=== PATIENT | male | born 1955 | race Caucasian/White ===

== ENCOUNTER 2023-09-22 13:31 | Outpatient (CLI) | payer OTHER, SELFPAY ==
--- NOTE | 2023-09-22 13:45 | MR_ITS ---
[address] [address] Phone:?[phone] Fax:?[phone] Referring Physician Information: Arnulfo Diaz M.D. [id number] [facility] [address] Phone:?[phone] Fax:?[phone] Patient:Karen Cole D.O.B:?1955 Sex:?Male Phone:?[phone] [facility] MRN:?[id number] Exam Date:?09/22/2023 EXAM: MRI of the RIGHT KNEE, without contrast CLINICAL: Evaluate for medial meniscal tear. COMPARISONS: X-rays dated 02/10/2023. TECHNICAL: Multiplanar multisequence MRI of the right knee was obtained. SEDATION: None. CONTRAST: None. FINDINGS: Ligaments: ACL: Intact and unremarkable. PCL: Intact and unremarkable. MCL: Intact and unremarkable. LCL: Intact and unremarkable. Posterolateral corner: Popliteus, biceps femoris, iliotibial band, and the popliteofibular ligament appear intact. Posteromedial corner: Semimembranosus, pes anserine tendons and posterior oblique ligament appear intact. Extensor mechanism: Patellar tendon: Intact, without tendinopathy. Quadriceps tendon: Intact, without tendinopathy. Retinacula: Medial and lateral retinacula are intact. Fat pads: There is increased edema involving Hoffa's fat. Patellofemoral joint: Patella: Deep chondral fissuring and small segment of developing deep chondral delamination involves the medial patellar facet on axial series 4 images 10-11 with underlying subchondral reactive marrow edema. Small segment of high-grade chondral loss involves the medial patellar facet on axial series 4 image 13. Deep chondral fissuring/delamination also involves the superior patellar median ridge with mild underlying subchondral marrow edema as seen on axial series 4 image 7. There is chondral heterogeneity and mild surface irregularity involving the lateral facet. Trochlea: Full thickness chondral loss of the inferior trochlea on sagittal series 6 images 13-17. There is heterogeneity of the trochlear cartilage. Medial compartment: Medial meniscus: There is complex tearing throughout the posterior horn extending into the posterior root and throughout the body segment. Medial cartilage: There is high-grade/full-thickness chondral loss involving the peripheral weightbearing medial femoral condyle with grade 2-3 chondral loss involving the peripheral medial tibial plateau. Focal deep chondral fissure involving the medial tibial plateau on sagittal series 6 image 22 with mild underlying subchondral reactive marrow edema. Grade 2-3 chondral loss involves the posterior nonweightbearing medial femoral condyle. Lateral compartment: Lateral meniscus: No evidence of discrete meniscal tear or meniscal displacement. Lateral cartilage: No significant chondromalacia. Knee joint: Effusion: Moderate partially visualized right knee effusion. Intra-articular bodies:?No convincing bodies identified. Popliteal cyst: None. Bones: No suspicious bone marrow signal alteration or fracture line. Reactive marrow edema and small degenerative cystic change involves the posterior medial tibial plateau. There is scattered degenerative peripheral marginal spurring seen to involve all 3 compartments of the knee. Anterior dominant knee subcutaneous soft tissue is noted, nonspecific. IMPRESSION: 1. Tearing of the medial meniscus as above. 2. Chondral loss involving the patellofemoral and medial compartments as above. 3. Moderate partially visualized joint effusion. 4. No evidence of ligamentous injury or fracture. [facility] Electronically signed on 09/23/2023 9:03:00 AM by Randy Whitt D.O.
== END 2023-09-22 13:32 | disposition home or self-care (01) ==
LOC: MRI 13:32
PROVIDERS: PCP Physician Assistant; Visit Provider Orthopaedic Surgery
DX: M25.561 Pain in right knee (principal); S83.241A Other tear of medial meniscus, current injury, right knee, initial encounter; M25.461 Effusion, right knee
CPT/HCPCS: 73721

== ENCOUNTER 2023-11-06 07:25 | Day surgery (SDC) | payer OTHER, SELFPAY ==
[2023-11-06] VITALS (24 sets, daily range): BP systolic 95–173; BP diastolic 57–94; PULSE 60–98; RESP 16–20; TEMP 35.7–37.4; O2SAT 90–98; BMI 41.3
[2023-11-06] MEDS: LACTATED RINGERS 1000 ML 1,000 ML 100 ML IV ×2 (06:55→10:35)
[2023-11-06] MEDS: OXYCODONE (CR) 10 MG TAB.ER.12H PO (07:56)
[2023-11-06] MEDS: ACETAMINOPHEN 500 MG TABLET 1000 MG PO ×3 (07:56→20:46)
[2023-11-06] MEDS: CELECOXIB 200 MG CAPSULE PO (07:56)
[2023-11-06] MEDS: SODIUM CHLORIDE 0.9 % (FLUSH) 10 ML SYRINGE IVF (08:31)
[2023-11-06] MEDS: fentaNYL 100 MCG/2 ML inj IVP (09:03)
[2023-11-06] MEDS: MIDAZOLAM HCL 1 MG/ML inj IVP (09:03)
--- NOTE | 2023-11-06 09:17 | SUR.PREOP ---
TIME?OUT:?0903 PT/RN/MDA?VERIFICATION?OF?SURGICAL?SITE,?PROCEDURE,?AND?CONSENT OBTAINED?PRIOR?TO?INVASIVE?PROCEDURE.
[2023-11-06] MEDS: CEFAZOLIN 2 GM INJ IVP (09:55)
[2023-11-06] MEDS: TRANEXAMIC ACID 100 MG/ML INJ 1000 MG IV (09:55)
--- NOTE | 2023-11-06 11:13 | XR_ITS ---
Patient: CARSON SALTER Facility:?[facility] Patient ID:?[id number] Site Patient ID:?[id number]. Site :?1955 Study:?XRay-Extremity Left KNEE 2V-11/06/2023 12:19:43 PM Ordering Physician:JESSICA Final Report: INDICATION: Post operative total knee arthroplasty TECHNIQUE: Knee radiograph 2 views left COMPARISON: None FINDINGS: Bone: No acute fractures or aggressive bone lesions are identified. Joint: The patient is status post a total knee arthroplasty with patellar resurfacing. No significant knee effusion is seen. Soft tissue: Anterior subcutaneous gas and joint gas are present from recent surgery. No radiopaque foreign bodies are seen. IMPRESSION: 1. There is an unremarkable postoperative appearance of the knee arthroplasty. Dictated by: Tony Ramos MD @ 11/06/2023 12:29:45 Signed by:?Tony Ramos MD @11/06/2023 12:29:45 PM (Electronic Signature)
--- NOTE | 2023-11-06 11:17 | P.ORPRC_ITS ---
Procedure Note Date of procedure: 11/06/23 Procedure: PREOPERATIVE DIAGNOSIS: Left knee osteoarthritis POSTOPERATIVE DIAGNOSIS: Left knee osteoarthritis NAME OF OPERATION: Left total knee arthroplasty SURGEON: Arnulfo Diaz MD BUSINESS INTEGRATION ANALYST: ALICJA Easley ANESTHESIA: Spinal ESTIMATED BLOOD LOSS: 0 mL COMPLICATIONS: None SPECIMENS: None DRAINS: None PREOPERATIVE ANTIBIOTICS: Ancef 3 grams, antibiotic impregnated cement IMPLANTS: 1. J[employer]J Attune revision CRS # 8 posterior stabilized femur, with a 14 mm x 50 mm cemented stem 2. # 7 revision CRS fixed-bearing tibia, with a 14 mm x 50 mm cemented stem 3. # 8 posterior stabilized, 5 mm fixed-bearing polyethylene 4. 41 patella INDICATIONS: The patient is a 68-year-old with a longstanding history of severe, unrelenting left knee pain secondary to end-stage (grade IV) left knee osteoarthritis. Despite appropriate nonoperative management, including activity modification, anti-inflammatories, ekoo-joz-flxigxe pain medication, bracing, physical therapy, and injections they continue to have pain and disability. Operative intervention was offered. The risks, benefits and expected outcomes were discussed in detail. These included but were not limited to: Infection, bleeding, injury to blood vessel or nerve, venous thromboembolism. All questions were answered to their satisfaction. Use of an accounting manager assistant controller was necessary throughout the case for patient positioning and safety, soft tissue retraction, and closure. A modifier 22 should be added to this case. The patient's weight of 126 kg with a BMI of 41.4 puts him at risk for aseptic loosening. Therefore, we elected to stem both sides of the joint to reduce this risk. This added extra time to complete the case. PROCEDURE: Spinal anesthesia was administered. The patient was placed supine on the operating table. The accounting manager assistant controller made sure the patient was positioned appropriately. The lower extremity was prepped and draped in the usual sterile fashion. The limb was exsanguinated with the Telly bandage. The pneumatic tourniquet was inflated to 300 mmHg. A standard anterior incision was made with the knee in flexion. Subcutaneous dissection was sharply taken through fascial layer #1. Full-thickness medial and lateral flaps were elevated. The accounting manager assistant controller retracted the soft tissues and protected them throughout the case. A standard subvastus approach was made. The patella was subluxed. The infrapatellar fat pad was preserved. The menisci and cruciate ligaments were sharply d?brided. Marginal osteophytes were d?brided with the rongeur. The drill was used to penetrate the femoral canal. The canal was aspirated and irrigated with pulse lavage. The intramedullary femoral guide was placed for a 5-degree valgus cut, removing 10 mm off the distal femur. The saw was used to make the cut. Whitesides line and the trans epicondylar axis were marked. The femoral sizing guide was pinned onto the distal femur. Three degrees of external rotation nicely parallels the transepicondylar axis. Pins were placed for posterior referencing. The four-in-one cutting guide was pinned onto the distal femur. The anterior, posterior, and chamfer cuts were made. The accounting manager assistant controller protected the collateral ligaments. The revision trial was placed. The box cuts were made. The drill was used x2. The stemmed, boxed trial was placed and was an excellent fit. Attention was then turned to the proximal tibia. The extramedullary tibial guide was placed for a neutral varus/valgus cut with 5 degrees of posterior slope, removing 2 mm based off the medial tibial surface. The accounting manager assistant controller protected the collateral ligaments and the neurovascular bundle. The saw was used to make the cut. Trial components were placed. The knee was nicely balanced in both flexion and extension. The trial components were removed. The tray was placed in appropriate rotation, parallel to our tibial cutting pins. It was pinned by the accounting manager assistant controller and the drill x2 was used. The stemmed tibial trial was placed. The punch was used. The tray was removed. The punch was used again. Attention was then turned to the patella. Cheesh-Na patellar thickness was 26 mm. The lobster claw resection guide was used with the 9.5 mm ash. The saw was used to make the cut. Drill holes were made by the accounting manager assistant controller. The trial was placed and was an excellent fit. Cancellous surfaces were irrigated with pulse lavage and thoroughly dried by the accounting manager assistant controller. We cemented the tibial component, then the femoral component. We impacted the 5 mm polyethylene onto the tibial tray. The knee was brought into full extension. We then cemented the patellar component. Excessive cement was removed. The cement was allowed to harden. The knee was taken through a range of motion and was found to be nicely balanced in both flexion and extension. The patella tracks centrally. The accounting manager assistant controller did a three minute dilute Betadine solution soak. The accounting manager assistant controller irrigated the wound with 3 liters of normal saline via pulse lavage. The accounting manager assistant controller reapproximated the extensor mechanism with #1 Vicryl in an interrupted qexegj-xh-snzcl fashion. The accounting manager assistant controller then ran the extensor mechanism with a #1 PDO Stratafix. The accounting manager assistant controller closed the subcutaneous tissues with a 3-0 Stratafix and the skin with a running 3-0 Stratafix in a subcuticular fashion. Glue was used to seal the skin. The accounting manager assistant controller placed a dry dressing, JELANI stocking, and Polar Care. Sponge and needle counts were correct x2. The patient tolerated the procedure well. There were no apparent complications. They were carefully transferred to the hospital bed and taken to the postanesthesia care unit in satisfactory condition. PLAN: The patient will be mobilized with physical therapy. Aspirin will be used for DVT prophylaxis. They will be discharged to home once medically appropriate.
--- NOTE | 2023-11-06 11:24 | P.NB_ITS ---
Nerve Block Nerve Block Time Seen by Provider: 09:12 Date Seen: 11/06/23 Type of block requested by surgeon for post-operative analgesia: adductor canal Side: left Time out performed: Yes Verification of patient name: Yes Verification of date of : Yes Site marking: site marked Name of person performing procedure: Yuri Assistants, if any: Romaine Continuous monitoring Was continuous monitoring of O2 sat, B/P, cardiac technologist, recorded every 15 minutes?: Yes Procedure Checklist: sterile prep, needles and gloves Ultrasound guided. Images saved: Yes Medications given in 5ml increments after negative aspiration: Ropivicaine %: 0.5 mL: 20 Needle gauge: 20 Decadron (mg): 10 Precedex (mcg): 25 Patient tolerated procedure well: Yes Additional comments: Needle noted adjacent to nerve Block Charges Block Charge (with Pro Fee): Femoral Nerve Use of Ultrasound Machine for Block: Yes- US Guidance/pain block
--- NOTE | 2023-11-06 11:25 | W.PM.NB ---
Nerve Block Nerve Block Time Seen by Provider: 09:12 Date Seen: 11/06/23 Type of block requested by surgeon for post-operative analgesia: geniculars Side: left Time out performed: Yes Verification of patient name: Yes Verification of date of : Yes Site marking: site marked Name of person performing procedure: Yuri Assistants, if any: Romaine Continuous monitoring Was continuous monitoring of O2 sat, B/P, vehicle monitor technician, recorded every 15 minutes?: Yes Procedure Checklist: sterile prep, needles and gloves Medications given in 5ml increments after negative aspiration: Ropivicaine %: 0.5 mL: 9 Needle gauge: 25 Patient tolerated procedure well: Yes Block Charges Block Charge (with Pro Fee): Genicular Nerve Block Use of Ultrasound Machine for Block: No
--- NOTE | 2023-11-06 11:26 | W.ANESCHARGE ---
Anesthesia Charges Start Date/Time Anesthesia Start Date: 11/06/23 Anesthesia Start Time: 09:30 Stop Date/Time Anesthesia Stop Date: 11/06/23 Anesthesia Stop Time: 11:58
--- NOTE | 2023-11-06 12:06 | SUR.PHASEI ---
xray here for ap/lat left knee
[2023-11-06] MEDS: HYDROmorphone 0.5 mg/0.5 ml inj IVP (12:54)
--- NOTE | 2023-11-06 14:14 | SUR.OPER ---
PATIENT QUESTIONS ANSWERED SATISFACTORILY PREOPERATIVELY.? PATIENT BROUGHT TO OR #3 PER CART AFTER ADMINISTRATION OF A BLOCK.? Patient positioned supine on OR #3 bed.? The perioperative?team supported arms bilaterally on arm boards.? Final approval of positioning by surgeon.
[2023-11-06] MEDS: OXYCODONE 5 MG TABLET PO ×3 (14:35→22:18)
--- NOTE | 2023-11-06 15:15 | PM.IMCN1 ---
Date of Consult Patient: Darryl Patient Consult date: 11/06/23 Requesting Physician: Orthopedics Primary Care Provider: Bryosn Howe PA-C Consult Narrative Reason for consult: Medical management of comorbidities Narrative: Leonidas Cole is a 68 year old male who presented to the hospital today for an elective L TKA. There were no surgical or anesthetic complications noted during procedure. Patient's H&P reviewed, PCP is at [facility] in [place]. Past medical history significant for: essential HTN. History of blood clots: No Postoperative plan: Home with and dogs. Review of Systems Status of ROS: Reports: 10 or more systems reviewed and unremarkable except as noted in History and below [facility] Medical History (Updated 11/04/23 @ 13:07 by Tana Morales RN) KATINA (obstructive sleep apnea) ?G47.33 - Obstructive sleep apnea (adult) (pediatric) (ICD-10) Hypertension ?I10 - Essential (primary) hypertension (ICD-10) Arthritis of right acromioclavicular joint ?M19.011 - Primary osteoarthritis, right shoulder (ICD-10) Rupture of right biceps tendon ?S46.211A - Strain of muscle, fascia and tendon of other parts of biceps, right arm, initial encounter (ICD-10) Rotator cuff tear, right ?M75.101 - Unspecified rotator cuff tear or rupture of right shoulder, not specified as traumatic (ICD-10) Surgical History (Updated 11/06/23 @ 18:58 by Shawna Joyner MD) Status post left knee replacement ?Z96.652 - Presence of left artificial knee joint (ICD-10) History of reduction of closed fracture ?Z87.81 - Personal history of (healed) traumatic fracture (ICD-10) Social History (Updated 09/24/23 @ 14:14 by Ninfa Garvin ~ [facility] [address], [facility] [address] [address]) What is your current living situation?: I presently have a place to live In the past 12 months, utilities in danger of being shut off: no In past 12 months, lack of transportation kept you from medical appts, meetings, work, or getting things needed for daily living: no In the past 12 mos, have been you worried that your food would run out before you had money to buy more?: never true In the past 12 mos, the food you bought just didn't last and you didn't have money to buy more?: never true Smoking Status: Never smoker Do you use any of these nicotine containing products: None Second hand tobacco smoke exposure: No How often do you have a drink containing alcohol: never AUDIT-C Alcohol total score: 0 Non-prescribed substance use: denies use Caffeine: Yes (occasional) How often does anyone, including family, friends and others, physically hurt you: never How often does anyone, including family, friends and others, insult or talk down to you: never How often does anyone, including family, friends and others, threaten you with harm: never How often does anyone, including family, friends and others, scream or curse at you: never service: No Meds Home Medications and Allergies Home Medications Medication Instructions Recorded Confirmed Type acetaminophen 500 mg tablet 500 mg PO Q6H PRN 02/10/23 11/06/23 History (Tylenol Extra Strength) amlodipine 10 mg tablet 10 mg PO DAILY 11/04/23 11/06/23 History atorvastatin 20 mg tablet 20 mg PO DAILY 11/04/23 11/06/23 History lisinopril 20 1 tab PO BID 11/04/23 11/06/23 History mg-hydrochlorothiazide 12.5 mg tablet acetaminophen 650 mg 1,300 mg PO BID 11/06/23 11/06/23 History tablet,extended release (8 Hour Pain Reliever) glucosamine-chondroitin 500 mg-400 1 tab PO BID 11/06/23 11/06/23 History mg tablet (Cosamin DS) Allergies Allergy/AdvReac Type Severity Reaction Status Date / Time No Known Drug Allergies Allergy Verified 11/06/23 07:49 Exam Narrative: Exam Narrative: GEN: Alert and oriented, answering questions appropriately HEENT: Normal external ears, EOMIs bilaterally, no scleral icterus CV: Irregular, no concerning murmurs - EKG reassuring R: LCTA bilaterally without concerning wheezing, rales, or rhonchi Ext: Gregory hose bilaterally Skin: No concerning skin lesions or rashes on exposed skin Neuro: Nonfocal Psych: Appropriate Const: Vital Signs, click to edit/add: Vital Signs - 24 hr 11/06/23 08:29 11/06/23 09:05 11/06/23 09:10 Temperature 98.1 F 98.1 F Pulse Rate 80 71 68 Pulse Rate [Left P ulse Oximeter] Respiratory Rate 16 16 16 Blood Pressure 170/94 H 145/83 H 131/74 Blood Pressure [Le ft Arm] Pulse Oximetry 93 93 93 Oxygen Delivery Me thod Room Air Nasal Cannula Nasal Cannula Oxygen Flow Rate 2 2 11/06/23 11:53 11/06/23 11:55 11/06/23 12:00 Temperature 98.2 F Pulse Rate 69 71 65 Pulse Rate [Left P ulse Oximeter] Respiratory Rate 16 16 16 Blood Pressure 95/62 95/62 105/66 Blood Pressure [Le ft Arm] Pulse Oximetry 93 91 91 Oxygen Delivery Me thod Nasal Cannula Nasal Cannula Nasal Cannula Oxygen Flow Rate 3 3 3 11/06/23 12:05 11/06/23 12:10 11/06/23 12:15 Temperature Pulse Rate 64 63 62 Pulse Rate [Left P ulse Oximeter] Respiratory Rate 16 16 16 Blood Pressure 102/65 100/67 109/65 Blood Pressure [Le ft Arm] Pulse Oximetry 95 98 98 Oxygen Delivery Me thod Nasal Cannula Nasal Cannula Nasal Cannula Oxygen Flow Rate 3 3 3 11/06/23 12:20 11/06/23 12:30 11/06/23 12:45 Temperature 98.0 F 96.2 F L 96.8 F L Pulse Rate 65 Pulse Rate [Left P ulse Oximeter] 60 60 Respiratory Rate 16 16 16 Blood Pressure 115/73 Blood Pressure [Le ft Arm] 97/75 120/79 Pulse Oximetry 98 96 92 Oxygen Delivery Me thod Nasal Cannula Room Air Room Air Oxygen Flow Rate 3 11/06/23 13:00 11/06/23 13:15 11/06/23 13:30 Temperature 96.8 F L 96.8 F L 96.8 F L Pulse Rate Pulse Rate [Left P ulse Oximeter] 65 73 72 Respiratory Rate 20 16 16 Blood Pressure Blood Pressure [Le ft Arm] 120/71 137/78 154/85 H Pulse Oximetry 98 95 93 Oxygen Delivery Me thod Room Air Room Air Room Air Oxygen Flow Rate 11/06/23 14:00 11/06/23 14:30 11/06/23 14:49 Temperature 97.1 F L 97.4 F L 96.2 F L Pulse Rate 60 Pulse Rate [Left P ulse Oximeter] 80 81 Respiratory Rate 16 16 16 Blood Pressure Blood Pressure [Le ft Arm] 173/91 H 163/87 H 97/75 Pulse Oximetry 92 94 96 Oxygen Delivery Me thod Room Air Room Air Room Air Oxygen Flow Rate Assessment and Plan Assessment and plan (1) Status post left knee replacement: Problem comment: - 11/06/23Joe Status: Acute Plan - pain management and prophylaxis per orthopedic surgery team - continue home medications for comorbidities - anticipate routine postoperative course
[2023-11-06] MEDS: CEFAZOLIN 3 GM in 0.9 % SODIUM CHLORIDE Mini-bag 100 ML IVPB (16:17)
--- NOTE | 2023-11-06 20:40 | PC.NURSE ---
End of shift [id number] - Pt arrived from PACU at approximately 1230. Pt alert, oriented, cooperative and fatigued. Pt reported tingling in non-operative leg and pain as 4/10 in operative leg. Medication given per MAR with pt reporting improvement. Pt tolerating RA, regular diet, fluids during shift. Denies SOB, nausea. Pt up with standby assistance to bathroom and able to void during shift. Cryocuff in place, dressing CDI, pedal pulse present. Pt appears to be resting comfortably at the end of the shift.
[2023-11-06] MEDS: ASPIRIN 81 MG TABLET EC PO (20:46)
[2023-11-06] MEDS: hydroCHLOROthiazide 12.5 MG CAPSULE PO (20:46)
[2023-11-06] MEDS: lisinopriL 20 MG TABLET PO (20:47)
[2023-11-06] MEDS: SENNOSIDES 1 TAB TABLET 2 TAB PO (20:47)
[2023-11-07] MEDS: CEFAZOLIN 3 GM in 0.9 % SODIUM CHLORIDE Mini-bag 100 ML IVPB (00:01)
[2023-11-07 03:00] VITALS: BP 163/82; PULSE 92; RESP 20; TEMP 36.8; O2SAT 93
[2023-11-07] MEDS: OXYCODONE 5 MG TABLET PO ×2 (03:17→08:32)
[2023-11-07] MEDS: ACETAMINOPHEN 500 MG TABLET 1000 MG PO ×2 (03:18→08:33)
[2023-11-07 06:48] LABS: Basophils Percent Auto 0.1 % (0.0-3.0); Hematocrit 39.2 % (37.0-53.0); Hemoglobin* 13.4 gm/dL (13.5-17.5); Immature Granulocytes Pct Auto 0.2 %; Lymphocytes Percent Auto 10.1 % (20-44); Mean Corpuscular HGB Conc 34 gm/dL (32-36); Mean Corpuscular Hemoglobin 31 pg (26-34); Mean Corpuscular Volume 90 fL (80-100); Monocytes Percent Auto 10.6 % (0.0-11.0); Platelet Count* 233 K/uL (140-440); RDW Coefficient of Variation % 11.7 % (11.5-15.5); Red Blood Count 4.34 m/uL (4.30-5.90); White Blood Count* 14.92 K/uL (4.50-11.00)
[2023-11-07 06:53] LABS: Slide Review Reflex No
[2023-11-07 07:09] LABS: INR 1.04 (0.91-1.10); Prothrombin Time 14.2 Seconds
[2023-11-07 07:12] LABS: Sodium* 132 mmol/L (135-149)
[2023-11-07 07:13] LABS: Potassium* 3.6 mmol/L (3.6-5.1)
[2023-11-07 07:15] LABS: Creatinine* 0.8 mg/dL (0.5-1.5); Est. Creatinine Clearance* 69.35; Estimated Glomerular Filt Rate 97 ml/min
[2023-11-07 07:16] LABS: Blood Urea Nitrogen* 23 mg/dL (7-30)
--- NOTE | 2023-11-07 07:29 | PC.NURSE ---
SHIFT NOTE : Pt pleasant and cooperative, A&O. Up SBA with a walker, moves well. Pain minimal, PRN Oxycodone given with pt reporting good relief. Denies SOB, CP, and N/V. Dressing C/D/I, CMS intact, cryocuff on continuously. IS to 2500.
--- NOTE | 2023-11-07 08:24 | P.ORPN_ITS ---
Subjective Subjective Time Seen by Provider: 07:30 Date Seen: 11/07/23 Principal diagnosis: Status post left knee repeat Interval history: Leonidas is comfortable this morning he in the recliner. He denies nausea and vomiting. He has ambulated about med surg. He will discharge to home today. Ortho Exam Narrative Exam Narrative: Alert and oriented x3. Patient is in no acute distress. Converses without labored breathing. Hearing is grossly intact. Ambulates with a walker. Examination of the left knee shows effusion is present. CMS is intact left lower extremity. Dressing is intact with no erythema or warmth or evidence of infection. Bilateral calves are soft and nontender. Soft tissue edema is mild. Const Vital Signs, click to edit/add: Vital Signs - 24 hr 11/06/23 08:29 11/06/23 09:05 11/06/23 09:10 Temperature 98.1 F 98.1 F Pulse Rate 80 71 68 Pulse Rate [Left Pulse Oximeter] Respiratory Rate 16 16 16 Blood Pressure 170/94 H 145/83 H 131/74 Blood Pressure [Left Arm] Pulse Oximetry 93 93 93 Oxygen Delivery Method Room Air Nasal Cannula Nasal Cannula Oxygen Flow Rate 2 2 11/06/23 11:53 11/06/23 11:55 11/06/23 12:00 Temperature 98.2 F Pulse Rate 69 71 65 Pulse Rate [Left Pulse Oximeter] Respiratory Rate 16 16 16 Blood Pressure 95/62 95/62 105/66 Blood Pressure [Left Arm] Pulse Oximetry 93 91 91 Oxygen Delivery Method Nasal Cannula Nasal Cannula Nasal Cannula Oxygen Flow Rate 3 3 3 11/06/23 12:05 11/06/23 12:10 11/06/23 12:15 Temperature Pulse Rate 64 63 62 Pulse Rate [Left Pulse Oximeter] Respiratory Rate 16 16 16 Blood Pressure 102/65 100/67 109/65 Blood Pressure [Left Arm] Pulse Oximetry 95 98 98 Oxygen Delivery Method Nasal Cannula Nasal Cannula Nasal Cannula Oxygen Flow Rate 3 3 3 11/06/23 12:20 11/06/23 12:30 11/06/23 12:45 Temperature 98.0 F 96.2 F L 96.8 F L Pulse Rate 65 Pulse Rate [Left Pulse Oximeter] 60 60 Respiratory Rate 16 16 16 Blood Pressure 115/73 Blood Pressure [Left Arm] 97/75 120/79 Pulse Oximetry 98 96 92 Oxygen Delivery Method Nasal Cannula Room Air Room Air Oxygen Flow Rate 3 11/06/23 13:00 11/06/23 13:15 11/06/23 13:30 Temperature 96.8 F L 96.8 F L 96.8 F L Pulse Rate Pulse Rate [Left Pulse Oximeter] 65 73 72 Respiratory Rate 20 16 16 Blood Pressure Blood Pressure [Left Arm] 120/71 137/78 154/85 H Pulse Oximetry 98 95 93 Oxygen Delivery Method Room Air Room Air Room Air Oxygen Flow Rate 11/06/23 14:00 11/06/23 14:30 11/06/23 14:49 Temperature 97.1 F L 97.4 F L 96.2 F L Pulse Rate 60 Pulse Rate [Left Pulse Oximeter] 80 81 Respiratory Rate 16 16 16 Blood Pressure Blood Pressure [Left Arm] 173/91 H 163/87 H 97/75 Pulse Oximetry 92 94 96 Oxygen Delivery Method Room Air Room Air Room Air Oxygen Flow Rate 11/06/23 15:30 11/06/23 16:30 11/06/23 17:30 Temperature 97.7 F 97.7 F 98.6 F Pulse Rate Pulse Rate [Left Pulse Oximeter] 84 82 93 Respiratory Rate 20 20 20 Blood Pressure Blood Pressure [Left Arm] 165/89 H 116/57 L 169/90 H Pulse Oximetry 92 94 92 Oxygen Delivery Method Room Air Room Air Room Air Oxygen Flow Rate 11/06/23 18:30 11/06/23 19:00 11/06/23 23:00 Temperature 99.4 F 98.9 F Pulse Rate Pulse Rate [Left Pulse Oximeter] 98 92 92 Respiratory Rate 20 20 20 Blood Pressure Blood Pressure [Left Arm] 162/80 H 154/90 H Pulse Oximetry 92 90 Oxygen Delivery Method Room Air Room Air Oxygen Flow Rate 11/06/23 23:00 11/07/23 03:00 Temperature 98.8 F 98.3 F Pulse Rate Pulse Rate [Left Pulse Oximeter] 88 92 Respiratory Rate 20 20 Blood Pressure Blood Pressure [Left Arm] 140/77 H 163/82 H Pulse Oximetry 91 93 Oxygen Delivery Method Nasal Cannula Room Air Oxygen Flow Rate 1 Assessment and Plan Assessment and plan (1) Status post left knee replacement: Problem details: - 11/06/23, Joe Status: Acute Assessment and Plan: Plan for discharge is today to home if they meet discharge criteria. DVT prophylaxis includes aspirin 81 mg twice daily x1 month, Gregory stockings x1 m onth may remove for 1 hr per day, frequent ambulation Remove dressing in 1 week. Observe wound and phone Orthopedics with any questions or concerns Return to clinic in 1 week for a wound check Return to clinic in 6 weeks with surgeon Minimize narcotic use. Wean off and discontinue soon as possible. Activities as tolerated. No strenuous activity. Outpatient physical therapy as scheduled. Ice and elevate the operative extremity. No restriction on ice.
[2023-11-07] MEDS: SENNOSIDES 1 TAB TABLET 2 TAB PO (08:28)
[2023-11-07] MEDS: ATORVASTATIN 10 MG TABLET 20 MG PO (08:29)
[2023-11-07] MEDS: AMLODIPINE 10 MG TABLET PO (08:32)
[2023-11-07] MEDS: ASPIRIN 81 MG TABLET EC PO (08:33)
[2023-11-07] MEDS: hydroCHLOROthiazide 12.5 MG CAPSULE PO (08:33)
[2023-11-07] MEDS: lisinopriL 20 MG TABLET PO (08:33)
[2023-11-07 09:15] VITALS: BP 153/75; PULSE 85; RESP 18; TEMP 36.9; O2SAT 90
== END 2023-11-07 11:15 | disposition home or self-care (01) ==
LOC: OR 07:27 → MEDSURG 07:27
PROVIDERS: PCP Physician Assistant; Visit Provider Orthopaedic Surgery
PROC: (CPT 27447; principal; 2023-11-06 09:00)
DX: M17.12 Unilateral primary osteoarthritis, left knee (principal); G89.18 Other acute postprocedural pain; I10 Essential (primary) hypertension; G47.33 Obstructive sleep apnea (adult) (pediatric)
CPT/HCPCS: 27447; 01402; 36415; 64447; 64454; 73560; 76942; 82565; 84132; 84295; 84520; 85025; 85610; 93005; 97110; 97116; 97161; 97165; 97530; 97535; A9270; C1776; J0690; J1100; J1170; J2250; J2405; J2704; J2795; J3010; J3490; J7120

== ENCOUNTER 2024-01-07 08:00 | Outpatient (RCR) | payer OTHER, SELFPAY | END 2024-02-18 09:54 | disposition home or self-care (01) | PROVIDERS: PCP Physician Assistant; Visit Provider Orthopaedic Surgery | DX: M17.12 Unilateral primary osteoarthritis, left knee (principal); Z96.652 Presence of left artificial knee joint; Z51.89 Encounter for other specified aftercare | CPT/HCPCS: 97110; 97112; 97116; 97140; 97161; 97164; 97530 ==